=== PATIENT | female | born 1965 | race Caucasian/White ===

== ENCOUNTER 2017-11-22 09:27 | Observation (INO) | payer BC ==
[2017-11-21 12:57] LABS: BASOPHILS # (AUTO) 0.1 (0.0-0.1); BASOPHILS % 0.7 % (0.0-1.0); EOSINOPHILS # (AUTO) 0.3 (0.0-0.4); EOSINOPHILS % 3.7 % (0.0-6.0); HEMATOCRIT 37.5 % (34.2-44.1); HEMOGLOBIN 12.6 g/dL (12.0-16.0); LYMPHOCYTES # (AUTO) 2.5 (1.0-3.2); LYMPHOCYTES % 33.9 % (18.0-39.1); MEAN CORPUSCULAR HGB CONC 33.6 g/dL (31-35); MEAN CORPUSCULAR VOLUME 92.1 fL (81-99); MONOCYTES # (AUTO) 0.4 (0.2-0.8); MONOCYTES % 5.7 % (4.4-11.3); NEUTROPHILS % 55.7 % (38.7-80.0); PLATELET COUNT 202 x10e3/uL (140-360); RED BLOOD COUNT 4.07 x10e6/uL (3.6-5.1); RED CELL DISTRIBUTION WIDTH 12.8 % (11.7-14.4)
[2017-11-21 13:07] LABS: INR 1.01; PROTHROMBIN TIME 12.5 seconds (11.9-14.5)
[2017-11-21 13:08] LABS: PARTIAL THROMBOPLASTIN TIME 25.3 seconds (23.8-35.5)
[2017-11-21 13:14] LABS: ANION GAP 14.2 mmol/L (8-16); BLOOD UREA NITROGEN 12 mg/dL (7-26); BUN/CREATININE RATIO 17 (6-25); CARBON DIOXIDE 28 mmol/L (22-29); CHLORIDE 97 mmol/L (98-107); CREATININE, SERUM 0.69 mg/dL (0.57-1.11); EST GLOMERULAR FILTRATION RATE > 60 ML/MIN (60-); GLUCOSE 93 mg/dL (74-118); POTASSIUM 4.2 mmol/L (3.5-5.1); SODIUM 135 mmol/L (136-145)
--- NOTE | 2017-11-21 13:50 | Diagnostic Imaging Report ---
EXAMINATION: PA and lateral views of the chest. COMPARISON: None CLINICAL HISTORY: Preoperative for lumbar spine surgery DISCUSSION: Lungs are well-inflated. No focal airspace consolidation, pleural effusion, or pneumothorax. Cardiomediastinal contour and pulmonary vasculature are within normal limits. No acute osseous abnormality. IMPRESSION: No acute cardiopulmonary abnormalities. Signed by: Dr. Alejandro Ashley M.D. on 11/21/2017 1:47 PM
[~2017-11-22] VITALS: Ht 157.5 cm; Wt 69.0 kg
[~2017-11-22 09:27] MED LIST: ACETAMINOPHEN 1000 MG/100 ML 100 ML IV ONE; CALCET TABLET1 EACH PO; ESTRADIOL1 MG PO; GABAPENTIN100 MG PO; LEVOTHYROXINE75 MCG PO; LIDOCAINE HCL (LTA) 4 ML SOLN ONE; LIOTHYRONINE SO5 MCG PO; MULTI-VITAMIN1 EACH PO; TIZANIDINE HCL4 MG PO; ULTRAM 50MG50 MG PO
[2017-11-22] MEDS ORDERED: CEFAZOLIN SOD 1 GM VIAL ONE (09:47)
[2017-11-22] MEDS ORDERED: THROMBIN FOR SOLN 5,000 UNIT VIAL ONE (09:57)
[2017-11-22] MEDS ORDERED: GELATIN SPONGE SZ 100 ONE (09:57)
[2017-11-22] MEDS ORDERED: BACITRACIN 50,000 UNIT VIAL ONE (09:57)
[2017-11-22] MEDS ORDERED: BUPIVACAINE 0.5%/EPI 30 ML SDV INJ ONE (09:57)
[2017-11-22] MEDS: LACTATED RINGER'S 1,000 ML IV SCH ×3 (12:32→19:18)
[2017-11-22] MEDS ORDERED: FENTANYL CITRATE/PF 100MCG/2 ML INJ ONE ×2 (12:40→19:12)
[2017-11-22] MEDS ORDERED: MEPERIDINE HCL INJ 50 MG/ML INJ ONE (12:44)
[2017-11-22] MEDS ORDERED: HYDROMORPHONE 2MG/ML 2 MG/ML ML IV PRN (12:45)
[2017-11-22] MEDS ORDERED: ACETAMINOPHEN 325 MG TAB PO PRN (12:45)
[2017-11-22] MEDS ORDERED: MORPHINE SULFATE 5 MG/ML VIAL IM PRN (12:45)
[2017-11-22] MEDS ORDERED: TRAMADOL HCL 50 MG TAB PO PRN (12:45)
[2017-11-22] MEDS ORDERED: PROMETHAZINE HCL (IM) 25 MG/ML VIAL IM PRN (12:45)
[2017-11-22] MEDS ORDERED: ZOLPIDEM TARTRATE 5 MG TAB PO PRN (12:45)
[2017-11-22] MEDS ORDERED: CEPACOL SORE THROAT LOZENGES PO PRN (12:45)
[2017-11-22] MEDS ORDERED: ONDANSETRON HCL INJ 2 MG/ML VIAL IV PRN (12:45)
[2017-11-22] MEDS ORDERED: TIZANIDINE HCL 4 MG TAB PO PRN (12:45)
[2017-11-22] MEDS ORDERED: MAGNESIUM/ALUMINUM/SIMETHICONE 30 ML UDC PO PRN (12:45)
--- NOTE | 2017-11-22 13:06 | Operative Report ---
DATE OF PROCEDURE: November 22, 2017 PREOPERATIVE DIAGNOSIS: Left L5-S1 disk herniation with superior migration and sequestration of extruded disk fragment. POSTOPERATIVE DIAGNOSIS: Left L5-S1 disk herniation with superior migration and sequestration of extruded disk fragment. PROCEDURE: Left L5-S1 laminotomy, medial facetectomy, and microsurgical diskectomy, [id number]. ANESTHESIA: General. INDICATIONS: Patient is a 52-year-old woman who presents with left L5-S1 disk herniation with superior migration and sequestration of the extruded disk fragment in the region of the axilla of the left L5 nerve root. She is symptomatic with an L5 radiculopathy. She was taken to the operating room for microsurgical diskectomy. PROCEDURE: After induction of general anesthesia, the patient was placed on the operating table in prone position over a Jonatan frame. Lumbar region was prepped and draped in sterile fashion. A preoperative x-ray was obtained. A small midline incision was created. Lumbar fascia was opened to the left of the midline, and subperiosteal dissection was carried out to expose the left side of the L5 and S1 laminae and the medial aspect of facet joint. A 2nd x-ray confirmed correct localization. The operating microscope was brought in. A high-speed drill equipped with ruben bur was used to drill the inferior two-thirds of the lamina of L5 and medial rim of the inferior articular process of L5. The ligamentum flavum was resected. The dural sac and the traversing S1 nerve root were exposed at the inferior aspect of the exposure. The axilla of the L5 nerve root could be visualized within the superior aspect of the exposure. The herniated disk material immediately came into view lateral to the dural sac and inferior to the axilla of the L5 nerve root. This was mobilized with a micro-ball probe and grasped with a micro-pituitary rongeur and removed as a sizable fragment of disk. A ball probe was then used to probe medially, laterally, superiorly and inferiorly in the area of the extruded disk, and several additional smaller fragments of disk were retrieved and removed. The annulus of the disk was then exposed. There was a chronic disk bulge in this area. The posterior annulus was incised with a #11 blade, and the loose contents of the L5-S1 disk were conservatively evacuated with curettes and pituitary rongeurs. Meticulous hemostasis was secured. The retractor was removed. The lumbar fascia was closed with #0 Vicryl sutures. Subcutaneous layer was closed with 2-0 Vicryl sutures. The skin was closed with 3-0 Monocryl sutures in subcuticular fashion. Steri-Strips and dressing were applied. The patient was awakened, extubated and taken to the postanesthesia care unit in stable condition. No intraoperative complications were encountered. Estimated blood loss was 10 mL. Job#: [id number]
--- NOTE | 2017-11-22 13:23 | Diagnostic Imaging Report ---
Lumbar Spine Radiographs: 1 views HISTORY: Pain. COMPARISON: None available. DISCUSSION: Some of the osseous structures are partially obscured by stool and bowel gas. There are five non-rib bearing lumbar vertebral bodies. The alignment of the spine is within normal limits. No displaced fracture or compression deformity is identified. Spine needles traversing the inferior aspect of L4 and L5 vertebral bodies and adjacent foramina. Disc Spaces: The disc spaces are well maintained. Facets: The facet joints are unremarkable. IMPRESSION: Spinal needle was overlying the inferior aspect of L4 and L5 vertebral bodies. Signed by: Dr. Matilda Hoffman M.D. on 11/22/2017 1:19 PM
--- NOTE | 2017-11-22 13:24 | Diagnostic Imaging Report ---
Lumbar Spine Radiographs: 1 views HISTORY: Pain. COMPARISON: None available. DISCUSSION: Some of the osseous structures are partially obscured by stool and bowel gas. There are five non-rib bearing lumbar vertebral bodies. The alignment of the spine is within normal limits. No displaced fracture or compression deformity is identified. Spinal needle with tip overlying the posterior elements at L5-S1. Disc Spaces: The disc spaces are well maintained. Facets: The facet joints are unremarkable. IMPRESSION: Spinal needle with tip overlying the posterior elements at L5-S1. Signed by: Dr. Matilda Hoffman M.D. on 11/22/2017 1:20 PM
[2017-11-22] MEDS ORDERED: CEFAZOLIN SOD 1 GM/D5W 50ML 50 ML IV SCH (14:00)
[2017-11-22 14:30] VITALS: BP 148/83
[2017-11-22] MEDS: GABAPENTIN 100 MG CAP PO SCH ×2 (14:41→20:05)
[2017-11-22] MEDS: CARISOPRODOL 350 MG TAB PO PRN ×3 (14:43→22:28)
[2017-11-22] MEDS: OXYCODONE/ACETAMINOPHEN 5-325 1 EACH TABLET PO PRN ×3 (14:43→22:28)
[2017-11-22] MEDS ORDERED: ONDANSETRON HCL INJ 2 MG/ML VIAL ONE (14:56)
[2017-11-22] MEDS ORDERED: GLYCOPYRROLATE INJ 1MG/ 5 ML SYR ONE (14:56)
[2017-11-22] MEDS ORDERED: LIDOCAINE HCL 2% JELLY 5 ML TUBE ONE (14:56)
[2017-11-22] MEDS ORDERED: ROCURONIUM BROMIDE 10 MG/ML 5ML VIAL ONE (14:56)
[2017-11-22] MEDS ORDERED: LIDOCAINE HCL 2% LOCAL INJ 5 ML SDV VIAL INJ ONE (14:56)
[2017-11-22] MEDS ORDERED: SEVOFLURANE INHAL SOLN 250 ML PEN BTL ONE (14:56)
[2017-11-22] MEDS ORDERED: DEXAMETHASONE SOD PHOS INJ 4 MG/ML VIAL ONE (14:56)
[2017-11-22] MEDS ORDERED: PROPOFOL IV EMULSION 10 MG/ML 20 ML VIAL ONE (14:56)
[2017-11-22] MEDS ORDERED: NEOSTIGMINE 5 MG/5ML SYR ONE (14:56)
[2017-11-22 15:42] VITALS: BP 139/69
[2017-11-22] MEDS: CEFAZOLIN SOD 1 GM VIAL IV SCH (18:18)
[2017-11-22 19:00] VITALS: BP 139/69
[2017-11-22] MEDS ORDERED: MIDAZOLAM HCL 2 MG/2 ML VIAL ONE (19:12)
[2017-11-22 19:55] VITALS: BP 126/69
[2017-11-23 00:40] VITALS: BP 127/63
[2017-11-23] MEDS: CEFAZOLIN SOD 1 GM VIAL IV SCH ×2 (02:00→10:09)
[2017-11-23] MEDS: CARISOPRODOL 350 MG TAB PO PRN ×2 (04:10→08:41)
[2017-11-23] MEDS: OXYCODONE/ACETAMINOPHEN 5-325 1 EACH TABLET PO PRN ×2 (04:10→08:41)
[2017-11-23 04:45] VITALS: BP 132/69
[2017-11-23] MEDS ORDERED: LIOTHYRONINE SODIUM 5 MCG TAB PO SCH (06:00)
[2017-11-23] MEDS ORDERED: LEVOTHYROXINE SODIUM 75 MCG TAB PO SCH (06:00)
[2017-11-23 07:53] VITALS: BP 138/67
[2017-11-23 08:07] VITALS: BP 138/67
[2017-11-23] MEDS: GABAPENTIN 100 MG CAP PO SCH (08:41)
[2017-11-23] MEDS ORDERED: MULTIVITAMINS/MINERALS TAB PO SCH (09:00)
[2017-11-23] MEDS ORDERED: ESTRADIOL 1 MG TAB PO SCH (09:00)
== END 2017-11-23 11:41 | disposition home or self-care (01) ==
LOC: OR 09:27 → PACU V 12:33 → IMCU 14:36
PROVIDERS: ADMIT Neurological Surgery; ATTEND Neurological Surgery
DX: M51.17 Intervertebral disc disorders with radiculopathy, lumbosacral region (principal); E03.9 Hypothyroidism, unspecified; Z87.891 Personal history of nicotine dependence; Z01.810 Encounter for preprocedural cardiovascular examination; Z01.812 Encounter for preprocedural laboratory examination; Z01.811 Encounter for preprocedural respiratory examination
CPT/HCPCS: 36415; 63047; 69990; 71046; 72020; 80048; 85025; 85610; 85730; 86850; 86900; 88304; 93005; G0378 ×2; J0690 ×2; J1100; J2001 ×2; J2175; J2250; J2405; J3490; J7120; J2270

== ENCOUNTER → 2018-02-26 | Outpatient (CLI) | payer BC ==
[~2018-02-26] MED LIST changes: -ACETAMINOPHEN 1000 MG/100 ML 100 ML IV ONE; -LIDOCAINE HCL (LTA) 4 ML SOLN ONE
--- NOTE | 2018-03-15 18:18 | Pulmonary Function Test ---
DATE OF STUDY: SPIROMETRY REPORT Essentially normal spirometry. Forced vital capacity 3.31 L, 102% of predicted. FEV1 2.88 L, 112%. FEV1/FVC ratio 87%. HDI23-85 is 168%. Normal spirometry. Job#: [id number] [place]
== END ==
LOC: RESP 09:01
PROVIDERS: ATTEND Family Medicine
DX: R06.00 Dyspnea, unspecified (principal)
CPT/HCPCS: 94010